=== PATIENT | female | born 2000 | race Caucasian/White ===

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

== ENCOUNTER 2018-11-24 13:06 | Emergency (ER) | payer MEDICAID ==
[~2018-11-24] VITALS: Wt 78.2 kg
[~2018-11-24 13:06] MED LIST: ACET500C5 PO; BEN25 PO; FIORICET PO; IBUP-1542 PO; MECL12.574 PO; ONDA4TAB14 PO; PNV11TAB PO; TRIA15CR55 TOP
[2018-11-24 13:11] VITALS: BP 112/55; PULSE 78; RESP 20
== END 2018-11-24 13:53 | disposition home or self-care (01) ==
LOC: E/R 13:06
DX: O99.712 Diseases of the skin and subcutaneous tissue complicating pregnancy, second trimester (principal); L98.9 Disorder of the skin and subcutaneous tissue, unspecified; Z3A.28 28 weeks gestation of pregnancy
CPT/HCPCS: 99282